=== PATIENT | female | born 1995 | race Native Hawaiian/Other Pacific Islander ===

== ENCOUNTER → 2019-07-18 | Outpatient (REF) | payer OTHER ==
[2019-07-18 13:44] LABS: FREE T4 > 8.00 NG/DL (0.76-1.46); THYROID STIMULATING HORMONE < 0.005 uIU/ML (0.358-3.740); TOTAL T3 > 800.0 NG/DL (60.0-181.0)
== END ==
LOC: M LABDRAW1 12:03
PROVIDERS: ATTEND Nurse Practitioner Family
DX: E05.00 Thyrotoxicosis with diffuse goiter without thyrotoxic crisis or storm (principal)

== ENCOUNTER → 2019-07-31 | Outpatient (CLI) | payer OTHER | LOC: M RAD 12:19 | PROVIDERS: ATTEND Internal Medicine Endocrinology, Diabetes & Metabolism | DX: E05.00 Thyrotoxicosis with diffuse goiter without thyrotoxic crisis or storm (principal) ==

== ENCOUNTER 2020-04-30 10:40 | Emergency (ER) | payer OTHER, SELFPAY ==
[~2020-04-30] VITALS: Ht 167.6 cm; Wt 69.9 kg
[2020-04-30 10:40] VITALS: BP 140/63
[2020-04-30] MEDS ORDERED: ASPIRIN 325 MG TAB PO ONE (11:30)
[2020-04-30 11:46] LABS: HEMATOCRIT 38.5 % (36.0-47.0); MEAN CORPUSCULAR HEMOGLOBIN 25.9 pg (27.0-33.0); MEAN CORPUSCULAR HGB CONC 33.8 g/dl (32.0-36.5); MEAN CORPUSCULAR VOLUME 76.8 fl (80.0-96.0); PLATELET COUNT, AUTOMATED 221 10^3/uL (150-450); RED BLOOD COUNT 5.01 10^6/uL (4.00-5.40); WHITE BLOOD COUNT 5.8 10^3/uL (4.0-10.0)
== END 2020-04-30 14:14 | disposition home or self-care (01) ==
LOC: M ED 10:40
DX: R07.9 Chest pain, unspecified (principal); E05.90 Thyrotoxicosis, unspecified without thyrotoxic crisis or storm

== ENCOUNTER 2020-06-20 09:30 | Emergency (ER) | payer MEDICAID, SELFPAY ==
[~2020-06-20] VITALS: Ht 167.6 cm; Wt 68.3 kg
[2020-06-20 09:31] VITALS: BP 143/65
--- NOTE | 2020-06-20 10:35 | REPVR ---
PROCEDURE INFORMATION: Exam: XR Right Foot Complete Exam date and time: 06/20/20 (910:10am) Age: 25 years old Clinical indication: Right foot pain. Trauma. TECHNIQUE: Imaging protocol: XR Right foot Views: 3 or more views COMPARISON: No relevant prior studies available FINDINGS: Bones/joints: Unremarkable. No acute fracture nor dislocation. Soft tissues: Unremarkable. IMPRESSION: No acute findings. Electronically signed by: Maia Morales On 06/20/2020 10:34:30 AM
--- NOTE | 2020-06-20 10:37 | REPVR ---
PROCEDURE INFORMATION: Exam: XR Lumbosacral Spine, 4 or 5 Views Exam date and time: 06/20/20 (10:04am) Age: 25 years old Clinical indication: Low back pain. Trauma. Possible compression fracture. TECHNIQUE: Imaging protocol: XR of the lumbosacral spine, 4 or 5 views COMPARISON: No relevant prior studies available FINDINGS: Vertebrae: Unremarkable. No acute fracture. Satisfactory alignment. Soft tissues: Unremarkable. IMPRESSION: No acute findings. No compression fractures noted. Satisfactory alignment. Electronically signed by: Maia Morales On 06/20/2020 10:37:21 AM
--- NOTE | 2020-06-20 10:39 | REPVR ---
PROCEDURE INFORMATION: Exam: XR Sacrum and Coccyx, 2 or More Views Exam date and time: 06/20/20 (10:07am) Age: 25 years old Clinical indication: Pain in coccyx area. Possible compression fracture. TECHNIQUE: Imaging protocol: XR of the sacrum and coccyx, 2 or more views COMPARISON: No relevant prior studies available FINDINGS: Bones/joints: Unremarkable.No acute fracture. Soft tissues: Unremarkable. IMPRESSION: No acute findings. Electronically signed by: Maia Morales On 06/20/2020 10:39:29 AM
== END 2020-06-20 10:56 | disposition home or self-care (01) ==
LOC: M ED 09:30
DX: S93.601A Unspecified sprain of right foot, initial encounter (principal); S33.8XXA Sprain of other parts of lumbar spine and pelvis, initial encounter; W10.8XXA Fall (on) (from) other stairs and steps, initial encounter; Y92.019 Unspecified place in single-family (private) house as the place of occurrence of the external cause

== ENCOUNTER 2020-07-28 08:56 | Emergency (ER) | payer SELFPAY ==
[~2020-07-28] VITALS: Ht 167.6 cm; Wt 69.9 kg
[2020-07-28] MEDS ORDERED: methylPREDNISolone 125MG 2ML VIAL IV ONE (10:15)
--- NOTE | 2020-07-28 11:00 | REPVR ---
PROCEDURE INFORMATION: Exam: XR Chest, 1 View Exam date and time: 07/28/2020 10:45 AM Age: 25 years old Clinical indication: Cough and dyspnea and other: Covid workup; Additional info: Dyspnea/cough TECHNIQUE: Imaging protocol: XR of the chest Views: 1 view. COMPARISON: CR Chest, 2 view PA, Lat 04/30/2020 12:30 PM FINDINGS: Lungs: Unremarkable. No consolidation. Pleural space: Unremarkable. No pleural effusion. No pneumothorax. Heart/Mediastinum: The cardiomediastinal silhouette is fairly stable in appearance, allowing for differences in technique. Bones/joints: Unremarkable. IMPRESSION: No evidence for acute pulmonary disease. Electronically signed by: Mike Tsai On 07/28/2020 11:00:30 AM
[2020-07-28 11:39] LABS: BASO % 0.2 % (0.0-1.0); EOS # 0.6 10^3/uL (0.0-0.5); EOS % 7.6 % (0.0-3.0); HEMOGLOBIN 12.5 g/dl (12.0-15.5); LYMPH # 3.1 10^3/uL (1.5-5.0); LYMPH % 37.4 % (24.0-44.0); MEAN CORPUSCULAR HEMOGLOBIN 25.3 pg (27.0-33.0); MEAN CORPUSCULAR HGB CONC 32.9 g/dl (32.0-36.5); MEAN CORPUSCULAR VOLUME 76.8 fl (80.0-96.0); MONO # 0.8 10^3/uL (0.0-0.8); MONO % 9.1 % (0.0-5.0); NEUTROPHILS # 3.8 10^3/uL (1.5-8.5); NEUTROPHILS % 45.3 % (36.0-66.0); PLATELET COUNT, AUTOMATED 203 10^3/uL (150-450); RED BLOOD COUNT 4.95 10^6/uL (4.00-5.40); WHITE BLOOD COUNT 8.3 10^3/uL (4.0-10.0)
[2020-07-28 13:20] LABS: ALBUMIN 3.2 GM/DL (3.2-5.2); ALT/SGPT 21 U/L (12-78); BILIRUBIN,DIRECT 0.1 MG/DL (0.0-0.2); BILIRUBIN,TOTAL 0.3 MG/DL (0.2-1.0); BLOOD UREA NITROGEN 8 MG/DL (7-18); CALCIUM LEVEL 9.1 MG/DL (8.5-10.1); CARBON DIOXIDE LEVEL 26 MEQ/L (21-32); CHLORIDE LEVEL 106 MEQ/L (98-107); CREATININE FOR GFR 0.24 MG/DL (0.55-1.30); GLOMERULAR FILTRATION RATE > 60.0 (>60); GLUCOSE, FASTING 86 MG/DL (70-100); POTASSIUM SERUM 3.9 MEQ/L (3.5-5.1); SODIUM LEVEL 140 MEQ/L (136-145); TOTAL PROTEIN 6.8 GM/DL (6.4-8.2)
[2020-07-28 13:21] LABS: FREE T3 > 30.0 PG/ML (2.2-4.0); FREE T4 > 8.00 NG/DL (0.76-1.46); THYROID STIMULATING HORMONE < 0.005 uIU/ML (0.358-3.740)
[2020-07-28 14:32] VITALS: BP 159/63
--- NOTE | 2020-07-29 05:33 | ECGEPIP ---
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
== END 2020-07-28 14:44 | disposition home or self-care (01) ==
LOC: M ED 08:56
DX: J06.9 Acute upper respiratory infection, unspecified (principal); B34.9 Viral infection, unspecified; E05.90 Thyrotoxicosis, unspecified without thyrotoxic crisis or storm; Z20.828 Contact with and (suspected) exposure to other viral communicable diseases
CPT/HCPCS: 71045; 80048; 80076; 83605; 84439; 84443; 84481; 85025; 93005; 93041; 94760; 96374; 99284; J2930; U0003

== ENCOUNTER → 2020-08-26 | Outpatient (CLI) | payer MEDICAID ==
[2020-08-26 14:31] LABS: FREE T4 > 8.00 NG/DL (0.76-1.46); THYROID STIMULATING HORMONE < 0.005 uIU/ML (0.358-3.740); TOTAL T3 > 800.0 NG/DL (60.0-181.0)
== END ==
LOC: M PLALAB 09:23
PROVIDERS: ATTEND Nurse Practitioner Family
DX: E05.00 Thyrotoxicosis with diffuse goiter without thyrotoxic crisis or storm (principal)

== ENCOUNTER → 2020-12-29 | Outpatient (CLI) | payer OTHER | LOC: M RAD 10:26 | PROVIDERS: ATTEND Internal Medicine Endocrinology, Diabetes & Metabolism | DX: E05.00 Thyrotoxicosis with diffuse goiter without thyrotoxic crisis or storm (principal) | CPT/HCPCS: 79005; A9517 ==

== ENCOUNTER → 2022-11-17 | Outpatient (CLI) | payer OTHER | LOC: M RAD 13:53 | PROVIDERS: ATTEND Internal Medicine Endocrinology, Diabetes & Metabolism | DX: E05.00 Thyrotoxicosis with diffuse goiter without thyrotoxic crisis or storm (principal) | CPT/HCPCS: 78012; A9516 ==